=== PATIENT | female | born 2005 | race Caucasian/White ===

== ENCOUNTER 2024-12-03 22:13 | Emergency (ER) | payer SELFPAY ==
[~2024-12-03] VITALS: Ht 160 cm; Wt 105.0 kg
[2024-12-03 22:56] VITALS: O2SAT 100
[2024-12-04 01:18] LABS: HCG SCREEN NEGATIVE
[2024-12-04] MEDS ORDERED: NAPR-681 MT (03:07)
[2024-12-04] MEDS ORDERED: HYDR-4001 MT (03:07)
[2024-12-04 03:40] VITALS: BP 120/79; PULSE 100; RESP 19; TEMP 37.2; O2SAT 100
== END 2024-12-04 04:00 | disposition home or self-care (01) ==
LOC: ER 22:13
DX: S82.831A Other fracture of upper and lower end of right fibula, initial encounter for closed fracture (principal); Z79.899 Other long term (current) drug therapy; X50.9XXA Other and unspecified overexertion or strenuous movements or postures, initial encounter; Y93.01 Activity, walking, marching and hiking; Y92.89 Other specified places as the place of occurrence of the external cause; Y99.8 Other external cause status
CPT/HCPCS: 29515; 73610; 84703; 99284